=== PATIENT | female | born 1960 | race American Indian/Alaskan Native ===

== ENCOUNTER 2020-08-12 16:30 | Emergency (ER) | payer SELFPAY | END 2020-08-12 17:40 | disposition left against medical advice (07) | LOC: ED 16:30 | DX: Z53.21 Procedure and treatment not carried out due to patient leaving prior to being seen by health care provider (principal) ==

== ENCOUNTER 2021-09-19 14:51 | Outpatient (CLI) | payer MEDICAID ==
--- NOTE | 2021-09-19 17:23 | XRay Report ---
Cervical spine-5 views INDICATION: NECK SPRAIN/STRAIN. COMPARISON: None. IMPRESSION: Normal alignment. 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 No acute oss eous or soft tissue abnormality. Signer Name: Umer Yee MD Signed: 09/19/2021 5:18 PM Workstation Name: [id number]
--- NOTE | 2021-09-19 17:29 | XRay Report ---
Bilateral knees-3 total views INDICATION: BILATERAL KNEE PAIN M25.61 M25.562. COMPARISON: None available. IMPRESSION: No acute osseous abnormality. Normal alignment. No significant DJD. Soft tissues are u nremarkable. Signer Name: Umer Yee MD Signed: 09/19/2021 5:25 PM Workstation Name: [id number]
--- NOTE | 2021-09-19 17:31 | XRay Report ---
Lumbar spine-3 views INDICATION: M46.21. Generalized back pain COMPARISON: None. IMPRESSION: Normal alignment. Mild lower lumbar facet arthropathy. No significant discogenic DJD. No acute osseous or soft tissue abnormality. Signer Name: Umer Yee MD Signed: 09/19/2021 5:26 PM Workstation Name: [email or web address]
== END 2021-09-19 14:52 | disposition home or self-care (01) ==
LOC: XRAY 14:51
PROVIDERS: ATTEND Orthopaedic Surgery
DX: M47.812 Spondylosis without myelopathy or radiculopathy, cervical region (principal); M46.21 Osteomyelitis of vertebra, occipito-atlanto-axial region; M25.561 Pain in right knee; M25.562 Pain in left knee; M47.816 Spondylosis without myelopathy or radiculopathy, lumbar region
CPT/HCPCS: 72040; 72100; 73565